=== PATIENT | female | born 1970 | race Caucasian/White ===

== ENCOUNTER 2016-12-08 12:47 | Emergency (ER) | payer BC, OTHER ==
[~2016-12-08] VITALS: Ht 160 cm; Wt 68.5 kg
[2016-12-08 12:52] VITALS: TEMP 36.6; Ht 160 cm; Wt 68.5 kg
[2016-12-08] MEDS ORDERED: KETOROLAC TROMETHAMINE 60 MG/2 ML VIAL IM STA (13:33)
[2016-12-08] MEDS ORDERED: SERT25TA PO (14:11)
[2016-12-08 14:30] VITALS: BP 122/76; PULSE 79; O2SAT 99
--- NOTE | 2016-12-08 14:57 | DIAGNOSTIC IMAGING REPORT ---
LUMBAR SPINE 2 OR 3 VIEWS CLINICAL HISTORY: lower back pain pain COMPARISON STUDY: None FINDINGS: Negative study. No evidence for compression deformity. Disc well-preserved IMPRESSION: No acute process Electronically signed by: Naveen Ibanez M.D. 12/08/2016 2:56 PM Dictated Date/Time: 12/08/2016 2:55 PM
[2016-12-08] MEDS ORDERED: OXYC1TAB3 PO (15:16)
--- NOTE | 2016-12-08 19:35 | EMERGENCY ROOM VISIT NOTE ---
History Report prepared by Nancy: Monica Rush Under the Supervision of: Dr. Gonzales Schmitt D.O. First contact with patient: 13:08 Chief Complaint: BACK PAIN Stated Complaint: BACK PAIN History of Present Illness The patient is a 46 year old female who presents to the Emergency Room with complaints of constant back pain beginning 3 hours ago. 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 She notes that she had a difficult time getting back up. Pt denies trauma, history of back surgery, headache, numbness in groin or legs, weakness, chest pain, shortness of breath, nausea, vomiting, diarrhea, and pain with urination. She notes that this has never happened to her before. Source of History: patient Onset: 3 hours ago Position: back (lower) Quality: other (pop) Timing: constant Associated Symptoms: No SOB, No chest pain, No diarrhea, No headache, No nausea, No vomiting, No weakness Note: Pt denies numbness in groin or legs. Review of Systems See HPI for pertinent positives & negatives. A total of 10 systems reviewed and were otherwise negative. Past Medical & Surgical Medical Problems: (1) No Known Active Medical Problems Family History No pertinent family history stated. Social History Smoking Status: Current Every Day Smoker Marital Status: Occupation Status: employed Current/Historical Medications Scheduled Sertraline (Zoloft), 25 MG PO DAILY Scheduled PRN Oxycodone Immediate Rel Tab (Roxicodone Ir), 5 MG PO Q6H PRN for Pain Allergies Coded Allergies: Aspirin (Unverified Allergy, Unknown, HIVES, 12/08/16) Caffeine (Unverified Allergy, Unknown, HIVES, 12/08/16) Cinnamedrine (Unverified Allergy, Unknown, HIVES, 12/08/16) Physical Exam Vital Signs Date Time Temp Pulse Resp B/P Pulse Ox O2 Delivery O2 Flow Rate FiO2 12/08/16 14:30 79 20 122/76 99 Room Air 12/08/16 12:52 36.6 85 20 117/83 94 Room Air Physical Exam GENERAL: sitting up in bed, tearful, mild distress, non-toxic EYE EXAM: normal conjunctiva OROPHARYNX: no exudate, no erythema, lips, buccal mucosa, and tongue normal and mucous membranes are moist NECK: no midline tenderness LUNGS: Clear to auscultation. Normal chest wall mechanics HEART: no murmurs, S1 normal and S2 normal ABDOMEN: abdomen soft, non-tender, normo-active bowel sounds, no masses, no rebound or guarding. BACK: Acute reproducible tenderness in paraspinal lower lumbar region along with mild midline tenderness, no obvious deformity SKIN: no rashes and no bruising UPPER EXTREMITIES: upper extremities are grossly normal. LOWER EXTREMITIES: Flexion extension hip, ankle, knee and EHL 5/5 bilaterally, gross sensations intact, patellar and Achilles reflexes 2/4 bilaterally Medical Decision & Procedures ER Provider Diagnostic Interpretation: Xray results per the radiologist and my interpretation. LUMBAR SPINE 2 OR 3 VIEWS FINDINGS: Negative study. No evidence for compression deformity. Disc well-preserved IMPRESSION: No acute process Electronically signed by: Naveen Ibanez M.D. 12/08/2016 2:56 PM Dictated Date/Time: 12/08/2016 2:55 PM Medications Administered Medications (Trade) Dose Ordered Sig/Jesus Route Start Time Stop Time Status Last Admin Dose Admin Ketorolac Tromethamine (Toradol Inj) 60 mg NOW STAT IM 12/08/16 13:33 12/08/16 13:34 DC 12/08/16 13:39 60 MG ED Course ED COURSE: Vital signs were reviewed and normal The patients medical record was reviewed The above diagnostic studies were performed and reviewed. ED treatments and interventions as stated above. 1319: The patient was evaluated in room B8. A complete history and physical examination was performed. 1333: Toradol Inj 60mg IM. 1412: I reevaluated the patient. She is feeling better. 1418: Upon reevaluation, the patient is hemodynamically stable.I discussed my findings with the patient and she understands and agrees with the treatment plan. Based on the patients age, coexisting illnesses, exam and lab findings the decision to treat as an outpatient was made. The patient remained stable while under my care. The patient appeared well at the time of discharge. Medical Decision Differential diagnoses includes but is not limited to lumbar radiculopathy, muscle strain, facture, cauda equina, mass, and disc herniation. Patient is a 46-year-old female who presents the ER for pain in her lower back. 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 She felt pop in her back and following that she had bilateral back pain. No weakness in her legs. No numbness in her groin. No history cancer IV drug use. No fevers. Patient fully neurologically intact on my exam. X-ray show no obvious fractures per she is given IM Toradol and felt slightly better. PDMP was reviewed and she is discharged with a small dose of OxyIR. Discussed with Pt concerning signs and symptoms to watch out for. Pt was instructed to follow up with their PCP and discussed with the patient their option to return to the ED at anytime for persistent or worsening symptoms. The appropriate anticipatory guidance and out-patient management, including indications for return to the emergency department, were explained at length to the patient and understood. [place] Drug Monitoring Program Search Results: patient reviewed within database, no issues identified Impression Primary Impression: Acute back pain Scribe Attestation The scribe's documentation has been prepared under my direction and personally reviewed by me in its entirety. I confirm that the note above accurately reflects all work, treatment, procedures, and medical decision making performed by me. Departure Information Dispostion Home / Self-Care Prescriptions Oxycodone Immediate Rel Tab (ROXICODONE IR) 5 Mg Tab 5 MG PO Q6H Y for Pain, #10 TAB Prov: Gonzales Schmitt, DO 12/08/16 Referrals No Doctor, Assigned (PCP) Forms HOME CARE DOCUMENTATION FORM, IMPORTANT VISIT INFORMATION Patient Instructions Back Pain - [facility], [facility] Additional Instructions Please follow up with your primary care doctor with in the next 24 hours. Any worsening of your symptoms, please return to the ED immediately. This includes fevers greater than 100.4, numbness or weakness in her legs, numbness in her groin, unable to move your bowels, or any other concerning signs or symptoms from your standpoint. You were also given a prescription for a narcotic which is OxyIR. While taking this medication you should also not drive, operate machinery and or work. Problem Qualifiers Primary Impression: Acute back pain Back pain location: low back pain Back pain laterality: bilateral Sciatica presence: without sciatica Qualified Codes: M54.5 - Low back pain
== END 2016-12-08 15:31 | disposition home or self-care (01) ==
LOC: EDBD 12:47 → C.EDB 12:48
DX: M54.5 Low back pain (principal); F17.210 Nicotine dependence, cigarettes, uncomplicated; Z79.899 Other long term (current) drug therapy